=== PATIENT | male | born 1970 ===

== ENCOUNTER 2017-01-16 21:08 | Emergency (ER) | payer MEDICARE, MEDICAID ==
[2017-01-16 21:08] VITALS: BMI 26.6
[2017-01-16 21:23] VITALS: BP 124/83; PULSE 97; RESP 16; TEMP 98.3; O2SAT 97
--- NOTE | 2017-01-16 21:42 | C.PDOC ---
History Of Present Illness 46 yo male come in for evaluation of Right foot puncture wound sustained early today " when stepped on nail by accident at home". 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 Otherwise, pt denies deformity, weakness, sensory or vascular deficits to injured foot Time Seen by Provider: 01/16/17 21:22 Chief Complaint (Nursing): Abnormal Skin Integrity History Per: Patient Past Medical History Reviewed: Historical Data, Nursing Documentation, Vital Signs Vital Signs: Last Vital Signs Temp 98.3 F 01/16/17 21:16 Pulse 97 H 01/16/17 21:16 Resp 16 01/16/17 21:16 BP 124/83 01/16/17 21:16 Pulse Ox 97 01/16/17 21:16 - Medical History PMH: Anxiety, Back Problems, Bipolar Disorder, Depression, HTN, Kidney Stones, Schizophrenia - [facility] Procedures DILATION OF LEFT URETER WITH INTRALUMINAL DEVICE, ENDO (07/22/16) FLUOROSCOPY KIDNEY, URETER, BLADDER, L W L OSM CONTRAST (07/22/16) Family History: States: No Known Family Hx - Social History Hx Tobacco Use: Yes Hx Alcohol Use: Yes Hx Substance Use: Yes - Immunization History Hx Tetanus Toxoid Vaccination: No Hx Influenza Vaccination: No Hx Pneumococcal Vaccination: No Review Of Systems Except As Marked, All Systems Reviewed And Found Negative. Constitutional: Negative for: Fever, Chills ENT: Negative for: Throat Pain Musculoskeletal: Positive for: Foot Pain Skin: Positive for: Lesions Neurological: Negative for: Weakness, Numbness Physical Exam - Physical Exam Appears: Well, Non-toxic, No Acute Distress Skin: Normal Color, Warm, Other ((+) Right foot small puncture wound noted to lateral aspect sole, appears dean, dry, intact. No erythema, no wound idscharge , no proximal streaking. No edema.) Extremity: Normal ROM, No Tenderness, No Pedal Edema, Capillary Refill (less than 2sec to Right foot), No Deformity, No Swelling Neurological/Psych: Oriented x3, Normal Speech, Normal Motor, Normal Sensation, Normal Reflexes ED Course And Treatment O2 Sat by Pulse Oximetry: 97 Pulse Ox Interpretation: Normal Progress Note: On re-evaluation, pt is afebrile, hemodynamicaly stable. Non- toxic. Ambulatory in Ed with stable. Right foot: exam c/w puncture wound, no cellulitis, no flactulance. FAROM, no neurovascular deficits. Neurologicaly intact. Pt was advised on course of ds. ref. to f/u with PMD in 2-3 days for re-eval . return to ED if any worsening or new changes. Disposition Counseled Patient/Family Regarding: Diagnosis, Need For Followup, Rx Given - Disposition Referrals: Rishi Curtis MD [Staff Provider] - Disposition: HOME/ ROUTINE Disposition Time: 21:41 Condition: STABLE Additional Instructions: WARM SALTY WATER FOOT SOAKS DAILY TAKE MEDICATION PRESCRIBED FOLLOW UP WITH PMD IN 2 DAYS FOR RE-EVALUATION. RETURN TO ED [place] WORSENING OR NEW CHANGES. Prescriptions: Ciprofloxacin [Cipro] 1 tab PO BID #14 tab Instructions: Puncture Wound (ED) Print Language: LUX[place]BOURGISH - Clinical Impression Clinical Impression: Puncture wound
[2017-01-16] MEDS ORDERED: Tetanus/Diphtheria Toxoids 0.5 ml Syringe IM ONE (21:47)
== END 2017-01-16 21:53 | disposition home or self-care (01) ==
LOC: C.ER 21:08
DX: S91.331A Puncture wound without foreign body, right foot, initial encounter (principal); W45.0XXA Nail entering through skin, initial encounter; Y92.009 Unspecified place in unspecified non-institutional (private) residence as the place of occurrence of the external cause

== ENCOUNTER 2017-03-23 22:47 | Emergency (ER) | payer MEDICARE, MEDICAID ==
[2017-03-23 22:47] VITALS: BMI 26.6
[2017-03-23 22:55] VITALS: TEMP 98; O2SAT 100
[2017-03-23 23:32] LABS: BASO % 0.4 % (0.0-2.0); EOS # 0.1 K/uL (0.0-0.7); EOS % 1.5 % (0.0-4.0); HEMATOCRIT 41.5 % (35.0-51.0); LYMPH % 20.7 % (20.0-40.0); MEAN CELL VOLUME 93.6 fL (80.0-94.0); MEAN CORPUSCULAR HEMOGLOBIN 30.9 pg (27.0-31.0); MEAN PLATELET VOLUME 8.7 fL (7.2-11.7); MONO # 0.9 K/uL (0.0-0.8); MONO % 9.3 % (0.0-10.0); RED CELL DISTRIBUTION WIDTH 13.7 % (11.5-14.5); WHITE BLOOD COUNT 9.7 K/uL (4.8-10.8)
[2017-03-23 23:41] LABS: CHLORIDE 100 mmol/L (98-107); SODIUM 142 mmol/L (132-148)
[2017-03-23 23:42] LABS: POTASSIUM 3.6 mmol/L (3.6-5.2)
[2017-03-23 23:44] LABS: ALB/GLOB RATIO 1.3 (1.0-2.1); ALKALINE PHOSPHATASE 82 U/L (38-126); ALT/SGPT 49 U/L (21-72); AST/SGOT 37 U/L (17-59); BILIRUBIN,TOTAL 0.5 mg/dL (0.2-1.3); BLOOD UREA NITROGEN 19 mg/dL (9-20); CALCIUM 9.5 mg/dl (8.6-10.4); CARBON DIOXIDE 29 mmol/L (22-30); GFR AFRICAN-AMERICAN > 60; GLUCOSE,RANDOM 107 mg/dL (75-110); TOTAL PROTEIN 7.4 g/dL (6.3-8.3)
--- NOTE | 2017-03-23 23:44 | C.PDOC ---
History Of Present Illness 46 y/o male c/o left sided chest pain since 05:00 this morning. (+) cough. Reports pain worsens with movement. Denies fever, chills, SOB, palpitations, diaphoresis, lower extremity pain or swelling, jaw pain, prolonged immobilization, or rash. Patient denies Hx of HTN, diabetes, or cholesterol. Time Seen by Provider: 03/23/17 22:57 Chief Complaint (Nursing): Chest Pain History Per: Patient History/Exam Limitations: no limitations Onset/Duration Of Symptoms: Hrs (05:00 this morning) Current Symptoms Are (Timing): Still Present Severity: Mild Quality: "Pain" Associated Symptoms: Other (Cough) Exacerbating Factors: Movement Recent travel outside of the [place]: No Additional History Per: Patient Past Medical History Reviewed: Historical Data, Nursing Documentation, Vital Signs Vital Signs: Last Vital Signs Temp 98 F 03/23/17 22:52 Pulse 84 03/23/17 22:52 Resp 20 03/23/17 22:52 BP 143/85 03/23/17 22:52 Pulse Ox 100 03/23/17 23:47 - Medical History PMH: Anxiety, Back Problems, Bipolar Disorder, Depression, HTN, Kidney Stones, Schizophrenia - [facility] Procedures DILATION OF LEFT URETER WITH INTRALUMINAL DEVICE, ENDO (07/22/16) FLUOROSCOPY KIDNEY, URETER, BLADDER, L W L OSM CONTRAST (07/22/16) Family History: States: Unknown Family Hx - Social History Hx Tobacco Use: Yes Hx Alcohol Use: Yes Hx Substance Use: Yes - Immunization History Hx Tetanus Toxoid Vaccination: No Hx Influenza Vaccination: No Hx Pneumococcal Vaccination: No Review Of Systems Except As Marked, All Systems Reviewed And Found Negative. Constitutional: Negative for: Fever, Chills, Sweats Cardiovascular: Positive for: Chest Pain. Negative for: Palpitations, Light Headedness Respiratory: Positive for: Cough. Negative for: Shortness of Breath Musculoskeletal: Negative for: Leg Pain, Foot Pain, Other (jaw pain) Skin: Negative for: Rash Physical Exam - Physical Exam Appears: Non-toxic, No Acute Distress Skin: Warm, Dry, No Rash Head: Atraumatic, Normacephalic Neck: Supple Chest: Symmetrical, No Tenderness Cardiovascular: Rhythm Regular, No Murmur Respiratory: Normal Breath Sounds, No Rales, No Rhonchi, No Wheezing, Other ( Speaking in full sentences) Gastrointestinal/Abdominal: Soft, No Tenderness Neurological/Psych: Oriented x3, Normal Speech, Normal Cognition Gait: Steady ED Course And Treatment - Laboratory Results Result Diagrams: 03/23/17 23:28 03/23/17 23:28 ECG: Interpreted By Me, Viewed By Me ECG Rhythm: Sinus Rhythm ECG Interpretation: Normal Interpretation Of ECG: Normal axis and rhythm Rate From EC O2 Sat by Pulse Oximetry: 100 (RA) Pulse Ox Interpretation: Normal Medical Decision Making Medical Decision Making: Impression: 46 y/o male c/o left sided chest pain since 05:00 this morning. (+) cough. Plans: * EKG * Blood work up * CXR * Motrin * IV fluids Disposition - Disposition Referrals: Rishi Curtis MD [Staff Provider] - Disposition: HOME/ ROUTINE Disposition Time: 00:01 Condition: GOOD Additional Instructions: Thank you for letting us take care of you today. Your provider was Dr. Nguyen. You were treated for noncardiac chest pain. The emergency medical care you received today was directed at your acute symptoms. If you were prescribed any medication, please fill it and take as directed. It may take several days for your symptoms to resolve. Return to the Emergency Department if your symptoms worsen, do not improve, or if you have any other problems. Please contact your doctor or call one of the physicians/clinics you have been referred to that are listed on the Patient Visit Information form that is included in your discharge packet. Bring any paperwork you were given at discharge with you along with any medications you are taking to your follow up visit. Our treatment cannot replace ongoing medical care by a primary care provider (PCP) outside of the emergency department. Thank you for allowing the [facility] team to be part of your care today. Follow up with your doctor in 2-3 days for re-evaluation and further management. Instructions: Noncardiac Chest Pain (ED) Forms: [facility] (Belizean) - Clinical Impression Clinical Impression: Pleuritic pain - Scribe Statement The provider has reviewed the documentation as recorded by the Scribe George lynch All medical record entries made by the Scribe were at my direction and personally dictated by me. I have reviewed the chart and agree that the record accurately reflects my personal performance of the history, physical exam, medical decision making, and the department course for this patient. I have also personally directed, reviewed, and agree with the discharge instructions and disposition.
[2017-03-24 00:35] VITALS: BP 99/64; PULSE 69; RESP 16
--- NOTE | 2017-03-24 08:44 | RAD ---
PROCEDURE: CHEST RADIOGRAPH, 1 VIEW HISTORY: chest pain COMPARISON: 07/15/2016 FINDINGS: LUNGS: Clear. PLEURA: No pneumothorax or pleural fluid seen. CARDIOVASCULAR: Probable top-normal heart size OSSEOUS STRUCTURES: No significant abnormalities. VISUALIZED UPPER ABDOMEN: Normal. OTHER FINDINGS: None. IMPRESSION: No active disease. Probable top-normal heart size
--- NOTE | 2017-03-24 21:54 | CARD ---
APPROVED REPORT EKG Measurement Heart [id number] <Conclusion> Normal sinus rhythm Normal ECG
== END 2017-03-24 00:10 | disposition home or self-care (01) ==
LOC: C.ER 22:47
DX: R07.81 Pleurodynia (principal); I10 Essential (primary) hypertension; F17.210 Nicotine dependence, cigarettes, uncomplicated

== ENCOUNTER 2018-02-09 12:10 | Emergency (ER) | payer MEDICARE, MEDICAID ==
[2018-02-09 12:10] VITALS: BMI 26.6
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
[2018-02-09] MEDS ORDERED: Bacitracin 500 Units/gm Oint Foilpak UD TOP ONE (13:44)
[2018-02-09] MEDS ORDERED: Bacitracin 500 Units/gm Oint Foilpak UD ONE (13:48)
--- NOTE | 2018-02-09 13:56 | RAD ---
PROCEDURE: Right Hand Radiographs. HISTORY: trauma COMPARISON: Amena in made with radiographs of the right wrist dated 01/19/2016. FINDINGS: BONES: There is a boxer fracture of the right 5th metacarpal with mild radial and volar angulation of the distal fragment. There is mild overlying soft tissue swelling as well. JOINTS: Normal. No osteoarthritic changes. SOFT TISSUES: Normal. OTHER FINDINGS: None. IMPRESSION: Boxer fracture right 5th metacarpal as above
[2018-02-09 14:05] VITALS: BP 137/79; PULSE 18; RESP 16; TEMP 97.7
[2018-02-09 14:06] VITALS: O2SAT 99
== END 2018-02-09 14:04 | disposition home or self-care (01) ==
LOC: C.ER 12:10
DX: S62.306A Unspecified fracture of fifth metacarpal bone, right hand, initial encounter for closed fracture (principal); Y04.0XXA Assault by unarmed brawl or fight, initial encounter; Y92.9 Unspecified place or not applicable